=== PATIENT | female | born 1965 | race Caucasian/White ===

== ENCOUNTER 2016-09-26 12:01 | Emergency (ER) | payer BC ==
--- NOTE | 2016-09-26 12:25 | EDM.PDOC ---
ED HPI RENAL/ - General Chief Complaint: Flank Pain Stated Complaint: POSS KIDNEY STONES Time Seen by Provider: 09/26/16 12:14 Source of Information: Reports: Patient History Limitations: Reports: No limitations - History of Present Illness INITIAL COMMENTS - FREE TEXT/NARRATIVE: Patient presents for evaluation and treatment of left-sided back pain. She reports that the pain started suddenly at 7 AM this morning. She states it is located in her left back and has now radiated down to her left flank and left groin. She reports associated symptoms of nausea, vomiting and chills. She reports 3 episodes of vomiting today. She denies any fevers, diarrhea, constipation, hematuria or dysuria. Patient reports that she has had kidney stones in the past. She feels this pain is similar. Most recent stone was about 2 or 3 years ago. Location: Reports: flank (left), LLQ (left), other (left groin) Severity: severe Associated Symptoms: Reports: groin pain (left), abdominal pain (left lower quadrant). Denies: dysuria, constipation, diarrhea - Related Data Allergies/ADRs: Allergies Allergy/AdvReac Type Severity Reaction Status Date / Time oxycodone [From OxyContin] Allergy Hives Verified 09/26/16 12:12 Home Meds: Home Meds Hydrocodone/Acetaminophen [Hydrocodon-Acetaminophen 5-325] 1 each PO Q4HR PRN # 20 tablet 09/26/16 [Rx] Tamsulosin HCl [Flomax] 0.4 mg PO DAILY #14 cap.er.24h 09/26/16 [Rx] Past Medical History Genitourinary History: Reports: Renal calculus - Past Surgical History Female Surgical History: Reports: Tubal ligation Social & Family History - Tobacco Use Smoking Status *Q: Never Smoker - Caffeine Use Caffeine Use: Reports: None - Recreational Drug Use Recreational Drug Use: No ED ROS GENERAL - Review of Systems Review Of Systems: See Below Constitutional: Reports: chills, malaise. Denies: fever GI/Abdominal: Reports: Abdominal pain (LLQ), Nausea, Vomiting (x3 ). Denies: Constipation, Diarrhea : Reports: flank pain (left), other (left groin pain). Denies: hematuria Musculoskeletal: Reports: back pain ED EXAM, RENAL/ - Physical Exam Exam: See Below Exam Limited By: No limitations General Appearance: alert, WD/WN, moderate distress Respiratory/Chest: no respiratory distress, lungs clear, normal breath sounds Cardiovascular: normal peripheral pulses, regular rate, rhythm, no murmur GI/Abdominal: normal bowel sounds, guarding, tender Back Exam: normal inspection, CVA tenderness (L). No: CVA tenderness (R) Neurological: alert, oriented, normal cognition Psychiatric: normal affect, normal mood Skin Exam: Warm, Dry, Normal color Course - Vital Signs Last Recorded V/S: Last Vital Signs Temp 36.3 C 09/26/16 12:08 Pulse 78 09/26/16 15:09 Resp 16 09/26/16 15:09 BP 111/88 09/26/16 15:09 Pulse Ox 98 09/26/16 15:09 - Orders/Labs/Meds Orders: Active Orders 24 hr Category Date Time Status Peripheral IV Care [RC] . DIRECTED Care 09/26/16 12:18 Active Peripheral IV Insertion Adult [OM.PC] Routine Oth 09/26/16 12:17 Ordered Labs: Laboratory Tests 09/26/16 09/26/16 09/26/16 Range/Units 12:15 12:15 14:01 WBC 9.99 (3.98-10.04) K/mm3 RBC 4.35 (3.98-5.22) M/mm3 Hgb 13.2 (11.2-15.7) gm/L Hct 38.2 (34.1-44.9) % MCV 87.8 (79.4-94.8) fl MCH 30.3 (25.6-32.2) pg MCHC 34.6 (32.2-35.5) g/dl RDW Std Deviation 38.2 (36.4-46.3) fL Plt Count 188 (182-369) K/mm3 MPV 10.1 (9.4-12.3) fl Neut % (Auto) 85.3 H (34.0-71.1) % Lymph % (Auto) 9.4 L (19.3-51.7) % [place] % (Auto) 5.1 (4.7-12.5) % Eos % (Auto) 0 L (0.7-5.8) Baso % (Auto) 0.0 L (0.1-1.2) % Neut # 8.52 H (1.56-6.13) K/mm3 Lymph # 0.94 L (1.18-3.74) K/mm3 [place]ner # 0.51 H (0.24-0.36) K/mm3 Eos # 0.00 L (0.04-0.36) K/mm3 Baso # 0.00 L (0.01-0.08) K/mm3 Manual Slide Review Abnormal smear Sodium 139 (136-145) mEq/L Potassium 3.3 L (3.5-5.1) mEq/L Chloride 102 (98-107) mEq/L Carbon Dioxide 25 (21-32) mEq/L Anion Gap 15.3 H (5-15) BUN 11 (7-18) mg/dL Creatinine 1.0 (0.55-1.02) mg/dL Est Cr Clr Drug Dosing 58.12 mL/min Estimated GFR (MDRD) 59 (>60) mL/min BUN/Creatinine Ratio 11.0 L (14-18) Glucose 132 H (74-106) mg/dL Calcium 9.1 (8.5-10.1) mg/dL Total Bilirubin 0.7 (0.2-1.0) mg/dL AST 11 L (15-37) U/L ALT 14 (14-59) U/L Alkaline Phosphatase 38 L (46-116) U/L C-Reactive Protein < 0.2 (<1.0) mg/dL Total Protein 7.5 (6.4-8.2) g/dl Albumin 4.7 (3.4-5.0) g/dl Globulin 2.8 gm/dL Albumin/Globulin Ratio 1.7 (1-2) Urine Color Yellow (Yellow) Urine Appearance Clear (Clear) Urine pH 7.5 (5.0-8.0) Ur Specific [place] 1.020 (1.005-1.030) Urine Protein 1+ H (Negative) Urine Glucose (UA) Negative (Negative) Urine Ketones 3+ H (Negative) Urine Occult Blood Negative (Negative) Urine Nitrite Negative (Negative) Urine Bilirubin 1+ H (Negative) Urine Urobilinogen 1.0 (0.2-1.0) Ur Leukocyte Esterase Negative (Negative) Urine RBC 0-5 (0-5) /hpf Urine WBC 0-5 (0-5) /hpf Ur Squamous Epith Cells 0-5 (0-5) /hpf Urine Bacteria Many H (FEW) /hpf Urine Mucus Moderate H (FEW) /hpf Meds: Medications Discontinued Medications Generic Name Dose Route Start Last Admin Trade Name Dionisio PRN Reason Stop Dose Admin Hydromorphone HCl 1 mg 09/26/16 12:22 09/26/16 12:32 Dilaudid IVPUSH 09/26/16 12:23 1 mg ONETIME ONE Administration Sodium Chloride 1,000 mls @ 999 mls/hr 09/26/16 12:23 09/26/16 12:29 Normal Saline IV 09/26/16 13:23 999 mls/hr ONETIME ONE Administration Ketorolac Tromethamine 30 mg 09/26/16 13:43 09/26/16 13:58 Toradol IVPUSH 09/26/16 13:44 30 mg ONETIME ONE Administration Ondansetron HCl 4 mg 09/26/16 12:22 09/26/16 12:30 Zofran IVPUSH 09/26/16 12:23 4 mg ONETIME ONE Administration Sodium Chloride 10 ml 09/26/16 12:17 09/26/16 12:41 Saline Flush FLUSH 10 ml ASDIRECTED PRN Administration Keep Vein Open - Radiology Interpretation Free Text/Narrative:: CT abdomen and pelvis impression per Dr. Morin: 1. Left-sided hydronephrosis. a 1 cm stone noted within the distal UVJ or more likely within the bladder. Please correlate with the patient's symptoms. 2. Small cysts within the right kidney which is incidental. 3. Other findings as noted. - Re-Assessments/Exams Free Text/Narrative Re-Assessment/Exam: 09/26/16 13:43 Labs returned. WBC is 9.99, hgb is 13.2 and plts are 188 CRP is normal at <0.2 Sodiumi s 139, potassium is 3.3, chloride is 102, anion gap is 15.3. Glucose is 132. Creatinine is 1.[address] with the patient. Pain is returning. Ordered 30mg IV toradol. Awaiting UA. 09/26/16 14:31 Pain improved with the IV toradol. Will discharge home at this time. Discharge instructions as documented. Departure - Departure Time of Disposition: 14:41 Disposition: Home, Self-Care 01 Condition: fair Clinical Impression: Kidney stone Prescriptions: Hydrocodone/Acetaminophen [Hydrocodon-Acetaminophen 5-325] 1 each PO Q4HR PRN # 20 tablet PRN Reason: Pain Tamsulosin HCl [Flomax] 0.4 mg PO DAILY #14 cap.er.24h Instructions: Kidney Stones, [id number] Referrals: PCP,None [Primary Care Provider] - Forms: ED Department Discharge Additional Instructions: You were given medication in the ER that can affect your ability to drive and operate machinery. No driving or operating machinery within 12 hours of taking prescription narcotic pain medication. Take the Flomax, one tablet daily until the stone passes. Take [id number] ibuprofen as needed for pain relief. may take the hydrocodone as needed for severe pain. One tab every 4-[address] operate machinery within 12 hours of taking hydrocodone. Hydrocodone can be habit-forming, recommend you take as few of these as needed to control you pain. Followup with family medicine or internal medicine in one to 2 weeks if the stone does not pass. I recommended Dr. Lea. Call [phone] to schedule with him at [facility]. Please return to the ER should your symptoms change or worsen. - My Orders Last 24 Hours: My Active Orders 09/26/16 12:17 Peripheral IV Insertion Adult [OM.PC] Routine 09/26/16 12:18 Peripheral IV Care [RC] . DIRECTED - Assessment/Plan Last 24 Hours: My Active Orders 09/26/16 12:17 Peripheral IV Insertion Adult [OM.PC] Routine 09/26/16 12:18 Peripheral IV Care [RC] . DIRECTED
[2016-09-26] MEDS: Sodium Chloride 0.9% 1,000 ML IV ONE (12:29)
[2016-09-26] MEDS: Ondansetron 4 MG/2 ML SDV IVPUSH ONE (12:30)
[2016-09-26] MEDS: HYDROmorphone 1 MG/ML Syringe IVPUSH ONE (12:32)
[2016-09-26] MEDS: Sodium Chloride 0.9% 10 ML Syringe FLUSH PRN (12:41)
--- NOTE | 2016-09-26 13:22 | CT ---
CT abdomen and pelvis Technique: Multiple axial sections were obtained from above the dome of the diaphragm inferiorly through the pubic symphysis. Intravenous and oral contrast was not utilized. Study has been performed as a ureteral stone protocol. Findings: No abnormal calcifications are seen within the kidneys. Left-sided hydronephrosis is identified. There is a 1 cm calcification being seen which could be located within the UVJ but more likely has passed into the bladder. Please correlate with the patient's symptoms. No other ureteral stone is seen. Small cyst believed to be present within the right kidney as an incidental note. Visualized lung bases shows nothing acute. Noncontrast appearance of the liver appears within normal limits. Spleen appears within normal limits. Adrenal glands show no nodule. Pancreas appears within normal limits. Aorta shows no aneurysmal dilatation. No retroperitoneal adenopathy or mesenteric abnormalities are seen. No pelvic mass or adenopathy is seen. Appendix is seen which appears normal. No bowel dilatation is seen. Bone window settings appear within normal limits for the patient's age. Impression: 1. Left-sided hydronephrosis. 1 cm stone noted within the distal UVJ or more likely within the bladder. Please correlate with the patient's symptoms. 2. Small cyst within the right kidney which is incidental. 3. Other normal findings as described above. Diagnostic code #3
[2016-09-26] MEDS: Ketorolac 30 MG/ML SDV IVPUSH ONE (13:58)
[2016-09-26 15:11] VITALS: BP 111/88
== END 2016-09-26 15:00 | disposition home or self-care (01) ==
LOC: JD.ED 12:01
DX: N20.0 Calculus of kidney (principal); Z88.5 Allergy status to narcotic agent; Z98.51 Tubal ligation status; Z79.899 Other long term (current) drug therapy
CPT/HCPCS: 36415; 74176; 80053; 81001; 85025; 86140; 96361; 96374; 96375; 99284; J1170; J1885; J2405; J7040; J7050

== ENCOUNTER 2016-12-27 19:08 | Emergency (ER) | payer BC ==
[2016-12-27 19:21] VITALS: BP 112/77
[2016-12-27] MEDS ORDERED: Ibuprofen 400 MG Tab PO ONE (20:27)
[2016-12-27] MEDS ORDERED: Diphtheria,Pertussis(Acell),Tetanus Vaccine 0.5 ML SDV inactive IM ONE (21:03)
--- NOTE | 2016-12-27 21:08 | CT ---
CT facial bones Technique: Multiple axial sections through the facial bones were obtained. Reconstructed coronal and sagittal images were reviewed. Findings: Visualized mastoid sinuses are clear. Visualized paranasal sinuses are also clear. Right and left globes are symmetric. No discrete fracture is seen within the facial bones. Impression: 1. No abnormality is identified on CT study of the facial bones. Diagnostic code #1
--- NOTE | 2016-12-27 21:09 | EDM.PDOC ---
ED HPI GENERAL MEDICAL PROBLEM - General Chief Complaint: Head Injury Stated Complaint: HIT IN FACE WHILE FENCING Time Seen by Provider: 12/27/16 20:18 Source of Information: Reports: Patient History Limitations: Reports: No Limitations - History of Present Illness INITIAL COMMENTS - FREE TEXT/NARRATIVE: This is a 51-year-old female. She was working outside today working on a fence when some fencing pliers came back and struck her just below the right eye also struck her upper lip. She fell backwards and states she had loss of consciousness maybe for less than 10 seconds. She now has a headache her lip is puffy and she has bruising and abrasion underneath the right eye. When she fell backwards she states she doesn't think she injured herself at all despite being hit with a fencing pliers. She denies any back pain denies any neck pain no extremity pain chest pain or abdominal pain. Headache Pain Score (Numeric/FACES): 8 - Related Data Allergies Allergy/AdvReac Type Severity Reaction Status Date / Time oxycodone [From OxyContin] Allergy Hives Verified 12/27/16 19:21 Home Meds: Home Meds Cholecalciferol (Vitamin D3) [Vitamin D] 1 tab PO DAILY 12/27/16 [History] Multivitamin [Multivitamins] 1 tab PO DAILY 12/27/16 [History] traMADol HCl [Tramadol HCl] 50 mg PO Q6H PRN #15 tablet 12/27/16 [Rx] Past Medical History Genitourinary History: Reports: Renal Calculus Musculoskeletal History: Reports: Other (See Below) Other Musculoskeletal History: left hip osteomyltis Neurological History: Reports: Migraines - Past Surgical History Female Surgical History: Reports: Tubal Ligation Social & Family History - Tobacco Use Smoking Status *Q: Never Smoker - Caffeine Use Caffeine Use: Reports: None - Recreational Drug Use Recreational Drug Use: No ED ROS GENERAL - Review of Systems Review Of Systems: See Below Constitutional: Reports: No Symptoms HEENT: Reports: Other (As per history of present illness) Respiratory: Reports: No Symptoms Cardiovascular: Reports: No Symptoms Endocrine: Reports: No Symptoms GI/Abdominal: Reports: No Symptoms : Reports: No Symptoms Musculoskeletal: Reports: Other (As per history of present illness) Skin: Reports: Other (As per history of present illness) Neurological: Reports: No Symptoms Psychiatric: Reports: No Symptoms Hematologic/Lymphatic: Reports: No Symptoms ED EXAM, HEAD INJURY - Physical Exam Exam: See Below Exam Limited By: No Limitations General Appearance: Alert, WD/WN, Mild Distress Head: Atraumatic, Normocephalic, Other (Outpatient the scalp does not reveal any obvious contusions bruises or abrasions to the back of her head, she is noted to have an abrasion and some bruising right underneath her right eye in the infraorbital region, there is no asymmetry to the zygomatic arch noted, there is no trauma noted with good upper gaze and lateral gaze of the right eye) Eyes: Bilateral Eye: EOMI, Normal Inspection, PERRL Ears: Normal External Exam, Normal Canal, Normal TMs Nose: Normal Inspection, Normal Mucousa, Other (No nasal bleeding noted) Throat/Mouth: Normal Inspection, Normal Voice, Other (Teeth appear to be intact she does have an abrasion right in the middle of her upper lip with lots of swelling, there is no laceration on the underside of the upper lip there is no trauma to her lower lip) Neck: Non-Tender, Full Range of Motion, Normal Alignment, Normal Inspection Respiratory: No Respiratory Distress, Lungs Clear, Other (No rib tenderness on palpation) Cardiovascular: Regular Rate, Rhythm, No Murmur GI/Abdominal Exam (Abbreviated): Soft, Other (Denies any abdominal complaints) Back Exam: Normal Inspection, Full Range of Motion, Other (Palpation of her thoracic and lumbar spine reveals no midline tenderness no step offs noted no paraspinal muscle tenderness on palpation of the muscles) Extremities: Other (She has movement of all 4 extremities without distress and denies any joint pain of her upper and lower extremities). No: Tenderness Neurologic: No Motor/Sensory Deficits, Alert, Oriented x 3 Skin: Normal Color, Warm/Dry - [place] Coma Score Best Eye Response ([place]): (4) Open Spontaneously Best Verbal Response ([place]): (5) Oriented Best Motor Response ([place]): (6) Obeys Commands [place] Total: 15 Course - Vital Signs Last Recorded V/S: Last Vital Signs Temp 98.1 F 12/27/16 19:18 Pulse 83 12/27/16 19:18 Resp 18 12/27/16 19:18 BP 112/77 12/27/16 19:18 Pulse Ox 99 12/27/16 19:18 - Orders/Labs/Meds Orders: Active Orders 24 hr Category Date Time Status Vaccines to be Administered [RC] PER UNIT ROUTINE Care 12/27/16 21:03 Active Meds: Medications Discontinued Medications Generic Name Dose Route Start Last Admin Trade Name Dionisio PRN Reason Stop Dose Admin Diphtheria/Tetanus/Acell Pertussis 0.5 ml 12/27/16 21:03 12/27/16 21:36 Boostrix IM 12/27/16 21:04 0.5 ml .ONCE ONE Administration Ibuprofen 400 mg 12/27/16 20:27 12/27/16 20:34 Motrin PO 12/27/16 20:28 400 mg ONETIME ONE Administration - Radiology Interpretation Free Text/Narrative:: CT scan of the head and face has no fractures - Re-Assessments/Exams Free Text/Narrative Re-Assessment/Exam: 12/27/16 21:56 I spoke to the patient regarding the CAT scans and that there were no fractures. Departure - Departure Time of Disposition: 21:57 Disposition: Home, Self-Care 01 Condition: good Clinical Impression: Loss of consciousness, Minor head trauma Facial contusion Qualifiers: Encounter type: initial encounter Qualified Code(s): S00.83XA - Contusion of other part of head, initial encounter Contusion of vermilion border of upper lip Qualifiers: Encounter type: initial encounter Qualified Code(s): S00.531A - Contusion of lip, initial encounter - Discharge Information Prescriptions: traMADol HCl [Tramadol HCl] 50 mg PO Q6H PRN #15 tablet PRN Reason: Pain Instructions: Head Injury, Adult, [id number], Facial or Scalp Contusion, Easy -to-Read Referrals: Janie Louis PA [Primary Care Provider] - Forms: ED Department Discharge Additional Instructions: Use ice to the bruises on her face and lip on an off for the next 48 hours to help with the swelling and tenderness, take the tramadol as needed for pain and headache, followup with your provider later this week for recheck, realize that you're going to have many places that are sore just from having fallen down especially your neck will be sore tomorrow, return to the ER if needed - My Orders Last 24 Hours: My Active Orders 12/27/16 21:03 Vaccines to be Administered [RC] PER UNIT ROUTINE - Assessment/Plan Last 24 Hours: My Active Orders 12/27/16 21:03 Vaccines to be Administered [RC] PER UNIT ROUTINE
--- NOTE | 2016-12-27 21:09 | CT ---
Head CT Technique: Multiple axial sections through the brain were obtained. Intravenous contrast was not utilized. Comparison: No previous intracranial imaging is available. Findings: Ventricles along with basal cisterns and sulci of the convexities are mildly prominent for the patient's age. No abnormal parenchymal densities are seen. No evidence of intracranial hemorrhage. No midline shift or mass effect is seen. Bone window settings were reviewed which shows no discrete calvarial abnormality. Visualized sinuses are clear. Impression: 1. No abnormality is identified on noncontrast head CT study. Diagnostic code #1
== END 2016-12-27 22:17 | disposition home or self-care (01) ==
LOC: JD.ED 19:08
DX: S06.0X9A Concussion with loss of consciousness of unspecified duration, initial encounter (principal); S00.531A Contusion of lip, initial encounter; S00.83XA Contusion of other part of head, initial encounter; Z88.6 Allergy status to analgesic agent; W22.8XXA Striking against or struck by other objects, initial encounter; Y93.89 Activity, other specified; Z23 Encounter for immunization
CPT/HCPCS: 70450; 70486; 90471; 99284; A9270; 90715

== ENCOUNTER 2024-03-18 20:23 | Emergency (ER) | payer BC ==
[2024-03-18 20:36] VITALS: PULSE 85
[2024-03-18] MEDS ORDERED: Sodium Chloride 0.9% 10 ML Syringe FLUSH PRN (20:36)
[2024-03-18 20:44] LABS: BASOPHILS ABSOLUTE AUTO 0.1 K/mm3 (0.0-0.2); BASOPHILS PERCENT AUTO 0.5 % (0.0-1.0); EOSINOPHILS ABSOLUTE AUTO 0.4 K/mm3 (0.0-0.4); EOSINOPHILS PERCENT AUTO 3.4 % (0.0-6.0); HEMATOCRIT 41.1 % (37.0-47.0); HEMOGLOBIN 13.9 gm/dl (12.0-16.0); LYMPHOCYTES ABSOLUTE AUTO 4.6 K/mm3 (1.0-4.8); LYMPHOCYTES PERCENT AUTO 44.8 % (24.0-44.0); MEAN CORPUSCULAR HEMOGLOBIN 29.5 pg (28.0-32.0); MEAN CORPUSCULAR HGB CONC 33.8 g/dl (32.0-36.0); MEAN CORPUSCULAR VOLUME 87.3 fl (83.0-99.0); MEAN PLATELET VOLUME 9.6 fl (9.4-12.3); MONOCYTES ABSOLUTE AUTO 0.8 K/mm3 (0.0-0.8); MONOCYTES PERCENT AUTO 7.6 % (0.0-8.0); NEUTROPHILS ABSOLUTE AUTO 4.4 K/mm3 (1.8-7.7); NEUTROPHILS PERCENT AUTO 42.7 % (41.0-71.0); PLATELET COUNT,PLT 213 K/mm3 (150-400); RED BLOOD CELL COUNT 4.71 M/mm3 (4.10-5.30); WHITE BLOOD CELL COUNT,WBC 10.33 K/mm3 (3.9-11.3)
[2024-03-18 21:08] LABS: A/G RATIO 1.5 (1-2); ALANINE AMINOTRANSFERASE,ALT 27 U/L (14-59); ALBUMIN 4.2 g/dl (3.4-5.0); ALKALINE PHOSPHATASE 49 U/L (46-116); ANION GAP 9.6 (5-15); ASPARTATE AMNIOTRANSFERASE,AST 12 U/L (15-37); BILIRUBIN TOTAL 0.5 mg/dL (0.2-1.0); BLOOD UREA NITROGEN,BUN 24 mg/dL (7-18); BUN/CREATININE RATIO 21.8 (14-18); CARBON DIOXIDE,CO2 30 mEq/L (21-32); CHLORIDE,CL 103 mEq/L (98-107); CREATININE 1.1 mg/dL (0.55-1.02); ESTIMATED GFR 58 mL/min (>60); GLUCOSE RANDOM 90 mg/dL (70-99); MAGNESIUM 2.2 mg/dL (1.8-2.4); POTASSIUM,K 4.6 mEq/L (3.5-5.1); SODIUM,NA 138 mEq/L (136-145)
[2024-03-18 21:12] LABS: C-REACTIVE PROTEIN < 0.05 mg/dL (<0.30); TROPONIN I HIGH SENSITIVITY < 4 pg/mL (<=51)
[2024-03-18] MEDS: Sodium Chloride 0.9% 1,000 ML IV ONE (21:24)
[2024-03-18] MEDS: Aspirin 81 MG Tab.Chew PO ONE (21:24)
[2024-03-18] MEDS ORDERED: Nitroglycerin 0.4 MG Tab.SL SL PRN (21:35)
[2024-03-18] MEDS: Acetaminophen 325 MG Tab PO ONE (21:35)
[2024-03-18 21:48] LABS: APPEARANCE,URINE CLEAR (Clear); BILIRUBIN,URINE NEGATIVE (Negative); COLOR,URINE YELLOW (Yellow); GLUCOSE,URINE NEGATIVE (Negative); KETONES,URINE NEGATIVE (Negative); LEUKOCYTE ESTERASE,URINE NEGATIVE (Negative); NITRITE,URINE NEGATIVE (Negative); OCCULT BLOOD,URINE NEGATIVE (Negative); PH,URINE 7.5 (5.0-8.0); PROTEIN,URINE NEGATIVE (Negative); UROBILINOGEN,URINE 0.2 (0.2-1.0)
[2024-03-18] MEDS: Alum Hydrox/Mag Hydrox/Simeth 30 ML, Lidocaine 2% 15 ML PO ONE (23:01)
[2024-03-19 00:08] VITALS: BP 130/85
== END 2024-03-19 00:10 | disposition home or self-care (01) ==
LOC: JD.ED 20:23
DX: R07.89 Other chest pain (principal); Z88.5 Allergy status to narcotic agent
CPT/HCPCS: 36415; 71046; 80053; 81003; 83735; 84484; 85025; 86140; 93005; 99285; A9270; J7030; 93010; 99284